=== PATIENT | male | born 1990 | race Caucasian/White ===

== ENCOUNTER → 2019-08-18 | Outpatient (CLI) | payer OTHER ==
[2019-08-19 15:05] LABS: RUBEOLA (MEASLES) IGG 15.2 AU/mL (Immune >16.4)
== END | disposition home or self-care (01) ==
LOC: LABPV 07:44
PROVIDERS: ATTEND Internal Medicine
DX: Z02.1 Encounter for pre-employment examination (principal)
CPT/HCPCS: 86706; 86735; 86762; 86765; 86787